=== PATIENT | male | born 1960 | race Caucasian/White ===

== ENCOUNTER 2023-03-30 11:58 | Emergency (ER) | payer OTHER ==
[~2023-03-30] VITALS: Ht 172.7 cm; Wt 109.0 kg
[2023-03-30 12:23] VITALS: TEMP 98.7; O2SAT 99
[2023-03-30 16:21] VITALS: BP 138/72; PULSE 78; RESP 15
== END 2023-03-30 16:21 | disposition home or self-care (01) ==
LOC: ER 11:58
DX: S09.90XA Unspecified injury of head, initial encounter (principal); Z98.890 Other specified postprocedural states; W22.8XXA Striking against or struck by other objects, initial encounter; Y93.89 Activity, other specified; Y92.89 Other specified places as the place of occurrence of the external cause; Y99.8 Other external cause status
CPT/HCPCS: 99284